=== PATIENT | female | born 1970 | race Caucasian/White ===

== ENCOUNTER 2019-01-02 19:33 | Emergency (ER) | payer OTHER, SELFPAY ==
--- NOTE | 2019-01-02 20:05 | ER ---
Nurse's Notes [facility] Name: Rosmery Melo Age: 48 yrs Sex: Female : 1970 Arrival Date: 01/02/2019 Time: 19:37 Bed 10 Private MD: Diagnosis: Buccal space swelling;facial swelling Presentation: 01/02 19:43 Presenting complaint: Patient states: "I have an infected tooth, it started aching aj1 Tuesday and then yesterday it really started throbbing. I got up this morning and its really tender now and its starting to get tender under my jaw" Swelling noted to right jaw. Transition of care: patient was not received from another setting of care. Onset of symptoms was December 2018. Risk Assessment: Do you want to hurt yourself or someone else? Patient reports no desire to harm self or others. Initial Sepsis Screen: Does the patient meet any 2 criteria? HR > 90 bpm. No. Patient's initial sepsis screen is negative. Does the patient have a suspected source of infection? Yes: Other: infected tooth. Care prior to arrival: None. 19:43 Method Of Arrival: Ambulatory aj 19:43 Acuity: PAPO 4 aj1 Triage Assessment: 19:45 General: Appears in no apparent distress. uncomfortable, Behavior is calm, cooperative, aj1 appropriate for age. Pain: Complains of pain in right jaw Pain currently is 6 out of 10 on a pain scale. EENT: Reports pain in right jaw. Neuro: Level of Consciousness is awake, alert, obeys commands, Oriented to person, place, time, situation. Cardiovascular: Patient's skin is warm and dry. Respiratory: Airway is patent Respiratory effort is even, unlabored, Respiratory pattern is regular, symmetrical. 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 - Social history:: Smoking status: Patient uses tobacco products, smokes one-half pack cigarettes per day. - Ebola Screening: : Patient denies travel to an Ebola-affected area in the 21 days before illness onset. Screenin:00 Abuse screen: Denies threats or abuse. Denies injuries from another. rv 20:00 Nutritional screening: No deficits noted. Tuberculosis screening: No symptoms or risk rv factors identified. Fall Risk None identified. Assessment: 20:00 General: Appears in no apparent distress. uncomfortable, Behavior is calm, cooperative. rv 20:00 Pain: Complains of pain in right jaw. Neuro: Level of Consciousness is awake, alert, rv obeys commands, Oriented to person, place, time, situation. Cardiovascular: Capillary refill < 3 seconds. Respiratory: Airway is patent. GI: No signs and/or symptoms were reported involving the gastrointestinal system. : No signs and/or symptoms were reported regarding the genitourinary system. EENT: No signs and/or symptoms were reported regarding the EENT system. Derm: Skin is intact. Musculoskeletal: No signs and/or symptoms reported regarding the musculoskeletal system. Vital Signs: 19:45 BP 129 / 85; Pulse 89; Resp 18; Temp 98.4; Pulse Ox 99% on R/A; Weight 62.6 kg (R); aj1 Height 5 ft. 3 in. (160.02 cm) (R); Pain 6/10; 19:45 Body Mass Index 24.45 (62.60 kg, 160.02 cm) aj1 ED Course: 19:37 Patient arrived in ED. es 19:45 Triage completed. aj1 19:45 Arm band placed on Patient placed in an exam room. aj1 19:47 Lc Ludwig MD is Attending Physician. ps1 20:00 Patient has correct armband on for positive identification. Call light in reach. Pulse rv ox on. 20:28 Idris Maher RN is Primary Nurse. rv 20:29 No provider procedures requiring assistance completed. Patient did not have IV access rv during this emergency room visit. Administered Medications: No medications were administered Outcome: 20:04 Discharge ordered by . ps1 20:29 Discharged to home ambulatory. rv 20:29 Condition: good 20:29 Discharge instructions given to patient, Instructed on discharge instructions, follow up and referral plans. medication usage, Demonstrated understanding of instructions, follow-up care, medications, Prescriptions given X 4. 20:30 Patient left the ED. rv Signatures: Belinda Guerrero RN RN aj1 Dayanna Gonzalez Phillip, MD MD ps1 Idris Maher, VIRIDIANA RN rv
--- NOTE | 2019-01-02 20:05 | EDPHYS ---
Physician Documentation [facility] Name: Rosmery Melo Age: 48 yrs Sex: Female : 1970 Arrival Date: 01/02/2019 Time: 19:37 Bed 10 Private MD: ED Physician Lc Ludwig HPI: 01/02 19:56 This 48 yrs old Female presents to ER via Ambulatory with complaints of ps1 facial swelling. 19:56 patient has swelling in the buccal space of the right lower mandible. Onset was two ps1 days ago. Pt states that she has known dental problems and is supposed to get tooth extraction and full bridge in a week. Has a dentist but could not get an appointment so she came to ED for evaluation. No trismus. Pain controlled with orajel and mouthwash.. . 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 - Social history:: Smoking status: Patient uses tobacco products, smokes one-half pack cigarettes per day. - Ebola Screening: : Patient denies travel to an Ebola-affected area in the 21 days before illness onset. ROS: 19:56 Constitutional: Negative for fever, chills, and weight loss, Eyes: Negative for injury, ps1 pain, redness, and discharge, Cardiovascular: Negative for chest pain, palpitations, and edema, Respiratory: Negative for shortness of breath, cough, wheezing, and pleuritic chest pain, Abdomen/GI: Negative for abdominal pain, nausea, vomiting, diarrhea, and constipation, MS/Extremity: Negative for injury and deformity, Skin: Negative for injury, rash, and discoloration, Neuro: Negative for headache, weakness, numbness, tingling, and seizure. 19:56 ENT: Positive for right facial swelling. Exam: 19:56 Constitutional: This is a well developed, well nourished patient who is awake, alert, ps1 and in no acute distress. Head/Face: Normocephalic, atraumatic. Eyes: Pupils equal round and reactive to light, extra-ocular motions intact. Lids and lashes normal. Conjunctiva and sclera are non-icteric and not injected. Chest/axilla: Normal chest wall appearance and motion. Nontender with no deformity. No lesions are appreciated. Cardiovascular: Regular rate and rhythm. No gallops, murmurs, or rubs. Normal PMI, no JVD. No pulse deficits. Respiratory: Lungs have equal breath sounds bilaterally, clear to auscultation and percussion. No rales, rhonchi or wheezes noted. No increased work of breathing, no retractions or nasal flaring. Abdomen/GI: Soft, non-tender, with normal bowel sounds. No distension or tympany. No guarding or rebound. No evidence of tenderness throughout. Skin: Warm, dry with normal turgor. Normal color with no rashes, no lesions, and no evidence of cellulitis. MS/ Extremity: Pulses equal, no cyanosis. Neurovascular intact. Full, normal range of motion. Neuro: Awake and alert, GCS 15, oriented to person, place, time, and situation. Cranial nerves II-XII grossly intact. Sensory grossly intact. 19:56 ENT: External ear(s): are unremarkable, Nose: is normal, Mouth: is normal, Dental exam: dental caries, that is moderate, diffusely, missing teeth, diffusely, has facial swelling localized in the buccal space on the right. No palpable abscess. No dental pain or gumline pain. . Vital Signs: 19:45 BP 129 / 85; Pulse 89; Resp 18; Temp 98.4; Pulse Ox 99% on R/A; Weight 62.6 kg (R); aj1 Height 5 ft. 3 in. (160.02 cm) (R); Pain 6/10; 19:45 Body Mass Index 24.45 (62.60 kg, 160.02 cm) aj1 MDM: 19:56 Data reviewed: vital signs, nurses notes, and as a result, I will discharge patient. ps1 Counseling: I had a detailed discussion with the patient and/or guardian regarding: the historical points, exam findings, and any diagnostic results supporting the discharge/admit diagnosis, the need for outpatient follow up, to return to the emergency department if symptoms worsen or persist or if there are any questions or concerns that arise at home. 20:04 Patient medically screened. ps1 Administered Medications: No medications were administered Disposition: 01/02/19 20:04 Discharged to Home. Impression: Buccal space swelling, facial swelling. - Condition is Stable. - Discharge Instructions: Dental Abscess. - Prescriptions for chlorhexidine gluconate 0.12 % Mucous Membrane mouthwash - place 15 milliliter by MUCOUS MEMBRANE route 2 times per day after brushing teeth, swish in mouth for 30 seconds then spit out; 1 bottle. Clindamycin HCl 300 mg Oral Capsule - take 1 capsule by ORAL route every 6 hours for 10 days; 40 capsule. Tylenol- Codeine #3 300-30 mg Oral Tablet - take 2 tablet by ORAL route every 6 hours As needed; 30 tablet. Medrol (Elmo) 4 mg Oral Tablets, Dose Pack - take 1 tablet by ORAL route as directed - follow package instructions; 1 packet. - Medication Reconciliation Form, Thank You Letter, Antibiotic Education, Prescription Opioid Use form. - Follow up: Emergency Department; When: As needed; Reason: Fever > 102 F, Trouble breathing, Worsening of condition. Follow up: Private Physician; When: As needed; Reason: Further diagnostic work-up, Recheck today's complaints, Re-evaluation by your physician. - Problem is new. - Symptoms are unchanged. Signatures: Belinda Guerrero RN RN aj1 Lc Ludwig MD MD ps1 Idris Maher RN RN rv Corrections: (The following items were deleted from the chart) 20:30 20:04 01/02/2019 20:04 Discharged to Home. Impression: Buccal space swelling; facial rv swelling. Condition is Stable. Forms are Medication Reconciliation Form, Thank You Letter, Antibiotic Education, Prescription Opioid Use. Follow up: Emergency Department; When: As needed; Reason: Fever > 102 F, Trouble breathing, Worsening of condition. Follow up: Private Physician; When: As needed; Reason: Further diagnostic work-up, Recheck today's complaints, Re-evaluation by your physician. Problem is new. Symptoms are unchanged. ps1
== END 2019-01-02 20:30 | disposition home or self-care (01) ==
LOC: ER 19:33
DX: R22.0 Localized swelling, mass and lump, head (principal); F17.210 Nicotine dependence, cigarettes, uncomplicated
CPT/HCPCS: 99283